=== PATIENT | female | born 1975 | race Two or more races ===

== ENCOUNTER 2023-08-27 19:50 | Emergency (ER) | payer OTHER ==
[~2023-08-27] VITALS: Ht 167.6 cm; Wt 70.8 kg
[2023-08-27 20:45] LABS: HEMATOCRIT 38.1 % (36.0-45.00); MEAN CELL VOLUME 91.5 fL (80.00-100.00); MEAN CORPUSCULAR HEMOGLOBIN 31.2 pg (27.00-32.0); MEAN CORPUSCULAR HGB CONC 34.1 g/dl (32.0-36.0); PLATELET COUNT 302 K/uL (150-450); RED BLOOD COUNT 4.16 M/uL (4.00-6.00); RED CELL DISTRIBUTION WIDTH 12.7 % (11.5-14.5)
[2023-08-27 21:17] LABS: URINE APPEARANCE Cloudy; URINE BILIRRUBIN Negative (NEGATIVE); URINE COLOR Yellow; URINE GLUCOSE Negative (NEGATIVE); URINE LEUKOCYTE Trace; URINE NITRATE Negative; URINE PROTEIN 30 (NEGATIVE)
[2023-08-27 21:21] LABS: URINE BACTERIA 1392.2 uL (0.0-1933); URINE EPITHELIAL CELLS 117.1 uL (0.0-38.8); URINE RBC 52.7 uL (0.0-20.8); URINE WBC 62.3 uL (0.0-23.2)
[2023-08-27 21:42] LABS: URINE BLOOD Trace; URINE MUCUS HEAVY
[2023-08-27 21:43] LABS: URINE TRICHOMONAS FEW
[2023-08-27 21:44] LABS: URINE CRYSTALS MODERATE /HPF
[2023-08-27] MEDS ORDERED: AMOX-CLAV 875-1 EAC1 PO (22:43)
== END 2023-08-27 22:49 | disposition home or self-care (01) ==
LOC: ER 19:50
PROVIDERS: General Practice
DX: J03.90 Acute tonsillitis, unspecified (principal); B34.9 Viral infection, unspecified; D35.2 Benign neoplasm of pituitary gland; Z20.822 Contact with and (suspected) exposure to COVID-19

== ENCOUNTER 2023-10-24 23:51 | Emergency (ER) | payer OTHER ==
[~2023-10-24] VITALS: Ht 167.6 cm; Wt 64.0 kg
[~2023-10-24 23:51] MED LIST: AMOX-CLAV 875-1 EAC1 PO
[2023-10-25] MEDS ORDERED: PARLODEL2.5 MG PO (00:14)
[2023-10-25 01:53] LABS: HEMATOCRIT 36.2 % (36.0-45.00); HEMOGLOBIN 12.8 g/dL (12.0-15.00); MEAN CELL VOLUME 92.5 fL (80.00-100.00); MEAN CORPUSCULAR HEMOGLOBIN 32.7 pg (27.00-32.0); MEAN CORPUSCULAR HGB CONC 35.3 g/dl (32.0-36.0); PLATELET COUNT 311 K/uL (150-450); RED BLOOD COUNT 3.91 M/uL (4.00-6.00); RED CELL DISTRIBUTION WIDTH 12.7 % (11.5-14.5)
[2023-10-25] MEDS ORDERED: ACETAMINOPHEN500 M2 PO (03:11)
[2023-10-25] MEDS ORDERED: ALLER-TEC10 MG PO (03:11)
[2023-10-25] MEDS ORDERED: AZITHROMYCIN500 MG PO (03:11)
[2023-10-25] MEDS ORDERED: MUCINEX DM ER1 EAC1 PO (03:11)
[2023-10-25] MEDS ORDERED: MEDROLPACK PO (03:11)
== END 2023-10-25 04:28 | disposition home or self-care (01) ==
LOC: ER 23:51
PROVIDERS: General Practice
DX: J06.9 Acute upper respiratory infection, unspecified (principal); B34.8 Other viral infections of unspecified site; Z20.822 Contact with and (suspected) exposure to COVID-19